=== PATIENT | female | born 1985 | race Hispanic/Latino ===

== ENCOUNTER 2021-01-25 18:33 | Emergency (ER) | payer SELFPAY ==
--- NOTE | 2021-01-25 21:04 | RAD REPORT ---
EXAM DESCRIPTION: RAD - Chest Single View - 01/25/2021 8:37 pm CLINICAL HISTORY: COUGH COMPARISON: No comparisons FINDINGS: Lines: None. Lungs: Mid lung and basilar opacities which are mild. Pleural: No significant pleural effusions or pneumothorax. Cardiac: The heart size is within normal limits. Bones: No acute fractures. Other: IMPRESSION: Mild predominantly basilar airspace disease concerning for multifocal pneumonia, includi ng Covid-19.
[2021-01-25 22:13] LABS: Urine Blood Negative (Negative); Urine Glucose Negative (Negative); Urine Protein 2+ (Negative); Urine Specific Gravity >=1.030 (1.005-1.030); Urine pH 5.5 (5.0-7.0)
[2021-01-25 23:32] LABS: Urine Specific Gravity/Preg >1.030 (1.005-1.030)
--- NOTE | 2021-01-26 01:15 | ER ---
Nurse's Notes [facility] Name: Madison Osman Age: 36 yrs Sex: Female : 1985 Arrival Date: 01/25/2021 Time: 18:35 Bed 10 Private MD: Diagnosis: Coronavirus infection, unspecified Presentation: 01/25 19:40 Chief complaint: Patient states: cough, shortness of breath for 3 days, son has covid, em started taking Zithromax prescribed from [place] today. Coronavirus screen: Vaccine status: Patient reports being unvaccinated. Ebola Screen: Patient negative for fever greater than or equal to 101.5 degrees Fahrenheit, and additional compatible Ebola Virus Disease symptoms Patient denies exposure to infectious person. Patient denies travel to an Ebola-affected area in the 21 days before illness onset. No symptoms or risks identified at this time. Initial Sepsis Screen: Does the patient meet any 2 criteria? HR > 90 bpm. Does the patient have a suspected source of infection? Yes: Productive cough/pneumonia. Risk Assessment: Do you want to hurt yourself or someone else? Patient reports no desire to harm self or others. Onset of symptoms was January 25, 2021. 19:40 Method Of Arrival: Ambulatory em 19:40 Acuity: MARISEL 4 em Triage Assessment: 19:41 General: Appears in no apparent distress. uncomfortable, Behavior is calm, cooperative, em appropriate for age. Neuro: Level of Consciousness is awake, alert, obeys commands, Oriented to person, place, time, situation, Appropriate for age. Respiratory: Reports shortness of breath at rest cough that is dry, Airway is patent Respiratory effort is even, unlabored, Respiratory pattern is regular, symmetrical, Breath sounds are clear bilaterally. Onset: The symptoms/episode began/occurred 3 days ago. Derm: Skin is intact, is healthy with good turgor, Skin is pink, warm \T\ dry. 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 - Social history:: Smoking status: Patient denies any tobacco usage or history of. Screenin:22 Abuse screen: Denies threats or abuse. Denies injuries from another. Nutritional ld1 screening: No deficits noted. Tuberculosis screening: No symptoms or risk factors identified. Fall Risk None identified. Assessment: 22:22 General: Appears in no apparent distress. comfortable, Behavior is calm, cooperative, ld1 appropriate for age. Pain: Denies pain. Neuro: Level of Consciousness is awake, alert, obeys commands, Oriented to person, place, time, situation, Appropriate for age. Cardiovascular: Capillary refill < 3 seconds Patient's skin is warm and dry. Rhythm is regular. Respiratory: Airway is patent Respiratory effort is even, unlabored, Respiratory pattern is regular, symmetrical. GI: Abdomen is flat, non-distended. GI: Reports nausea. : No signs and/or symptoms were reported regarding the genitourinary system. EENT: No signs and/or symptoms were reported regarding the EENT system. Derm: No signs and/or symptoms reported regarding the dermatologic system. Musculoskeletal: No signs and/or symptoms reported regarding the musculoskeletal system. 01/26 00:03 Reassessment: Patient appears in no apparent distress at this time. Patient and/or ld1 family updated on plan of care and expected duration. Pain level reassessed. Patient is alert, oriented x 3, equal unlabored respirations, skin warm/dry/pink. Patient denies pain at this time. 01:32 Reassessment: Patient appears in no apparent distress at this time. Patient and/or em family updated on plan of care and expected duration. Pain level reassessed. Patient is alert, oriented x 3, equal unlabored respirations, skin warm/dry/pink. Vital Signs: 01/25 19:40 BP 109 / 75; Pulse 108; Resp 24; Temp 97.5; Pulse Ox 99% on R/A; Weight 68.04 kg; em Height 5 ft. 3 in. (160.02 cm); 22:22 BP 116 / 79; Pulse 101; Resp 18; Temp 98.3(O); Pulse Ox 100% on R/A; Pain 0/10; ld1 01/26 00:03 BP 128 / 77; Pulse 98; Resp 20; Pulse Ox 100% on R/A; Pain 0/10; ld1 01:32 BP 114 / 72; Pulse 89; Resp 18; Pulse Ox 99% on R/A; em 01/25 19:40 Body Mass Index 26.57 (68.04 kg, 160.02 cm) em ED Course: 01/25 18:35 Patient arrived in ED. am2 19:41 Triage completed. em 20:37 Chest Single View XRAY In Process Unspecified. EDMS 21:11 Abraham Galarza PA is PHCP. [facility] 21:11 Kedar Arroyo MD is Attending Physician. m 22:22 Patient has correct armband on for positive identification. Placed in gown. Bed in low ld1 position. Call light in reach. Side rails up X2. Pulse ox on. NIBP on. Door closed. Noise minimized. Warm blanket given. 22:22 No provider procedures requiring assistance completed. ld1 22:55 Inserted saline lock: 20 gauge in left antecubital area, using aseptic technique. Blood ld1 collected. 23:47 CT Chest For PE Angio In Process Unspecified. EDMS 01/26 01:32 IV discontinued, intact, bleeding controlled, No redness/swelling at site. Pressure em dressing applied. Administered Medications: No medications were administered Outcome: 01:14 Discharge ordered by . [facility] 01:32 Discharged to home ambulatory. em 01:32 Condition: stable 01:32 Discharge instructions given to patient, Instructed on discharge instructions, follow up and referral plans. medication usage, Demonstrated understanding of instructions, follow-up care, medications, Prescriptions given X 2. 01:33 Patient left the ED. em Signatures: Dispatcher [employer] EDUT Abraham Galarza PA PA jmm Munoz, Edgar, RN RN em Kyung Urias [facility] Odalis Loja RN RN ld1
--- NOTE | 2021-01-26 01:15 | EDPHYS ---
Physician Documentation [facility] Name: Madison Osman Age: 36 yrs Sex: Female : 1985 Arrival Date: 01/25/2021 Time: 18:35 Bed 10 Private MD: PEREZ Physician Kedar Arroyo HPI: 01/26 01:10 This 36 yrs old Female presents to ER via Ambulatory with complaints of m Shortness Of Breath, covid exposure. 01:10 The patient has shortness of breath at rest. Onset: The symptoms/episode began/occurred jmm gradually. The patient's shortness of breath is aggravated by nothing, is alleviated by nothing. Associated signs and symptoms: Pertinent negatives: fever. Patient complains of shortness of breath beginning approx 2 days ago. Son recently positive for covid. . 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 - Social history:: Smoking status: Patient denies any tobacco usage or history of. ROS: 01/26 01:10 Constitutional: Positive for body aches, fatigue. jmm Respiratory: Positive for cough. All other systems are negative. Exam: 01:10 Constitutional: This is a well developed, well nourished patient who is awake, alert, jmm and in no acute distress. Head/Face: atraumatic. Eyes: EOMI, no conjunctival erythema appreciated ENT: Moist Mucus Membranes Neck: Trachea midline, Supple Chest/axilla: Normal chest wall appearance and motion. Cardiovascular: Regular rate and rhythm. No edema appreciated Respiratory: Normal respirations, no respiratory distress appreciated Abdomen/GI: Non distended, soft Back: Normal ROM Skin: General appearance color normal MS/ Extremity: Moves all extremities, no obvious deformities appreciated, no edema noted to the lower extremities Neuro: Awake and alert, normal gait Psych: Behavior is normal, Mood is normal, Patient is cooperative and pleasant Vital Signs: 01/25 19:40 BP 109 / 75; Pulse 108; Resp 24; Temp 97.5; Pulse Ox 99% on R/A; Weight 68.04 kg; em Height 5 ft. 3 in. (160.02 cm); 22:22 BP 116 / 79; Pulse 101; Resp 18; Temp 98.3(O); Pulse Ox 100% on R/A; Pain 0/10; ld1 01/26 00:03 BP 128 / 77; Pulse 98; Resp 20; Pulse Ox 100% on R/A; Pain 0/10; ld1 01:32 BP 114 / 72; Pulse 89; Resp 18; Pulse Ox 99% on R/A; em 01/25 19:40 Body Mass Index 26.57 (68.04 kg, 160.02 cm) em MDM: 01/25 21:32 Patient medically screened. [facility] 01/26 01:14 Data reviewed: vital signs, nurses notes. Counseling: I had a detailed discussion with michel the patient and/or guardian regarding: the historical points, exam findings, and any diagnostic results supporting the discharge/admit diagnosis, lab results, radiology results, the need for outpatient follow up, to return to the emergency department if symptoms worsen or persist or if there are any questions or concerns that arise at home. 01/25 19:27 Order name: Flu; Complete Time: 21:11 01/25 19:27 Order name: Strep; Complete Time: 21:11 01/25 20:41 Order name: Throat Culture [facility] 01/25 21:52 Order name: SARS-COV-2 RT PCR; Complete Time: 22:00 [facility] 01/25 22:12 Order name: Urine Dipstick-Ancillary; Complete Time: 22:14 [facility] 01/25 19:27 Order name: Chest Single View XRAY; Complete Time: 21:11 01/25 21:53 Order name: Urine Test (obtain specimen); Complete Time: 22:17 [facility] 01/25 21:53 Order name: CT Chest For PE Angio [facility] 01/25 21:53 Order name: Saline Lock; Complete Time: 22:55 [facility] 01/25 23:22 Order name: Urine --Ancillary (enter results); Complete Time: 23:32 oe Administered Medications: No medications were administered Disposition: 04:52 Co-signature as Attending Physician, Kedar Arroyo MD I agree with the assessment and [facility] plan of care. Disposition Summary: 01/26/21 01:14 Discharge Ordered Location: Home [facility] Condition: Stable [facility] Diagnosis - Coronavirus infection, unspecified [facility] Followup: m - With: Private Physician - When: 2 - 3 days - Reason: Recheck today's complaints, Continuance of care, Re-evaluation by your physician Discharge Instructions: - Discharge Summary Sheet jmm - COVID-19 [facility] Forms: - Medication Reconciliation Form [facility] - Thank You Letter jm - Antibiotic Education [facility] - Prescription Opioid Use [facility] Prescriptions: - ivermectin 3 mg Oral tablet - take 6 tablet by ORAL route as directed Please take 6 tabs by mouth now and jmm another 6 tabs by mouth on day 3; 12 tablet; Refills: 0, Product Selection Permitted - albuterol sulfate 90 mcg/actuation Inhalation HFA aerosol inhaler - inhale 2 puff by INHALATION route every 4 hours; 1 Pump; Refills: 0, Product jm Selection Permitted Signatures: Dispatcher [employer] Kedar Rand MD MD cha Mickail, Joel, PA PA Dereje Salas, RN RN em Corrections: (The following items were deleted from the chart) 01/25 19:52 19:28 CORONAVIRUS+MR.LAB.BRZ ordered. [facility] PERZEMS
[2021-01-26] MEDS ORDERED: ALBUTEROL INHALER 60 PUFF/8 GM IH ONE (01:49)
[2021-01-26 01:54] VITALS: TEMP 98.3
[2021-01-26 01:57] VITALS: BP 114/72; O2SAT 99
--- NOTE | 2021-01-26 13:55 | RAD REPORT ---
EXAM DESCRIPTION: CT - Chest For Pe Angio - 01/26/2021 4:54 am CLINICAL HISTORY: The patient is 36 years old and is Female; shortness of breath TECHNIQUE: Axial computed tomographic angiography images of the chest with intravenous contrast. S agittal and coronal reformatted images were created and reviewed. This CT exam was performed using one or more of the following dose reduction techniques: automated exposure control, adjustment of t he mA and/or kV according to patient size, and/or use of iterative reconstruction technique. MIP re constructed images were created and reviewed. COMPARISON: No relevant prior studies available. FINDINGS: Pulmonary arteries: Unremarkable. No pulmonary embolism. Aorta: No acute findings. No thoracic aortic aneurysm. Lungs: Scattered bilateral patchy groundglass opacities with a mid to lower lung predominance. Pleural space: Unremarkable. No significant effusion. No pneumothorax. Heart: Unremarkable. No cardiomegaly. No significant pericardial effusion. No evidence of R V dysfunction. Bones/joints: No acute fracture. No dislocation. Soft tissues: Unremarkable. Lymph nodes: Unremarkable. No enlarged lymph nodes. IMPRESSION: Scattered bilateral patchy groundglass opacities with a mid to lower lung predominance. Findings are nonspecific but can be seen with infectious and inflammatory etiologies. No evidence o f pulmonary embolism. Electronically signed by: Nathen Campos MD 01/26/2021 12:13 AM CDT Due to temporary technical issues with the PACS/Fluency reporting system, reports are being signed by the in house radiologists without review as a courtesy to insure prompt reporting. The interpreting radiologist is fully responsible for the content of the report.
== END 2021-01-26 01:33 | disposition home or self-care (01) ==
LOC: ER 18:33
DX: U07.1 COVID-19 (principal)
CPT/HCPCS: 71045; 71275; 81003; 81025; 82565; 87070; 87081; 87804; 99284; Q9967; U0003